=== PATIENT | male | born 1980 | race Two or more races ===

== ENCOUNTER 2020-06-13 05:14 | Emergency (ER) | payer BC ==
[~2020-06-13] VITALS: Ht 182.9 cm; Wt 88.0 kg
[2020-06-13] MEDS ORDERED: ANALPRAM HC 2.530 GM RECTAL (08:46)
== END 2020-06-13 08:56 | disposition home or self-care (01) ==
LOC: ER 05:14
DX: R10.84 Generalized abdominal pain (principal); R19.7 Diarrhea, unspecified; K64.9 Unspecified hemorrhoids